=== PATIENT | female | born 1995 | race American Indian/Alaskan Native ===

== ENCOUNTER 2019-06-04 17:20 | Outpatient (CLI) | payer OTHER ==
[2019-06-04 18:51] VITALS: BP 111/65
--- NOTE | 2019-06-04 21:42 | Ultrasound Report ---
Limited OB Ultrasound BPP HISTORY: decel. TECHNIQUE: Grayscale and color Doppler imaging performed. COMPARISON: None FINDINGS: There is a single viable intrauterine gestation which is cephalic in presentation. Heart ra te is 148 bpm. JOSE CARLOS was 21 cm in this patient with reported gestational age of 34 weeks and 2 days. On BPP, the fetus received a score of 2 out of 2 for breathing movement, movement, posture/tone, and JOSE CARLOS. Total score was 8 out of 8. IMPRESSION: 1. Single viable intrauterine gestation as above. 2. Normal BPP. Signer Name: Bear Hernandez MD Signed: 06/04/2019 9:37 PM Workstation Name: [id number]
== END 2019-06-04 21:40 | disposition home or self-care (01) ==
LOC: TRG 17:20
PROVIDERS: ATTEND Obstetrics & Gynecology
DX: O47.03 False labor before 37 completed weeks of gestation, third trimester (principal); Z3A.34 34 weeks gestation of pregnancy
CPT/HCPCS: 59025; 76815; 76819

== ENCOUNTER 2019-07-06 20:48 | Emergency (ER) | payer OTHER ==
[2019-07-07] MEDS ORDERED: SODIUM CHLORIDE IRRI 500 ML 500 ML IR ONE (01:15)
[2019-07-07] MEDS ORDERED: LIDOCAINE (1%) 10 MG/1 ML VIAL 20 ML MDV ONE (01:17)
[2019-07-07] MEDS ORDERED: LIDOCAINE (1%) 10 MG/1 ML VIAL 20 ML MDV INFILTRATI ONE (01:18)
[2019-07-07] MEDS ORDERED: SODIUM CHLORIDE 0.9% IRR 500 ML BOTTLE IR ONE (01:18)
[2019-07-07] MEDS ORDERED: HYDROGEN PEROXIDE 118 ML SOLUTION ONE (02:20)
--- NOTE | 2019-07-07 02:22 | Emergency Department Report ---
HPI - General Chief Complaint: Wound/Laceration Time Seen by Provider: 07/07/19 00:42 - HPI HPI: Room 36 The patient is a 24-year-old female presenting with a chief complaint of finger laceration. The patient states approximately 3 hours ago while opening a can she accidentally cut her right index finger and right thumb. Patient denies vaginal bleeding or abdominal pain. Patient is 39 weeks Location: [See above] Duration: [See above] Quality: [See above] Severity: [See above] Timing: [See above] Context: [See above] Modifying factors: [See above] Associated signs and symptoms: [see above] ED Past Medical Hx - Past Medical History Previous Medical History?: No - Surgical History Past Surgical History?: No - Family History Family history: no significant - Social History Smoking Status: Never Smoker Substance Use Type: None - Medications Home Medications: Home Medications Medication Instructions Recorded Confirmed Last Taken Type cephALEXin [Keflex] 500 mg PO Q6HR #28 capsule 07/07/19 Unknown Rx ED Review of Systems ROS: Stated complaint: 39WKS PREG/R INDEX FINGER/THUMB LAC Other details as noted in HPI Constitutional: no symptoms reported Eyes: denies: eye pain ENT: denies: throat pain Respiratory: no symptoms reported Cardiovascular: denies: chest pain Endocrine: no symptoms reported Gastrointestinal: denies: abdominal pain Skin: other (finger laceration) Physical Exam - Physical Exam Vital Signs: Vital Signs 07/06/19 21:37 Temperature 98.9 F Pulse Rate 92 H Respiratory 18 Rate Blood Pressure 106/71 O2 Sat by Pulse 98 Oximetry Physical Exam: GENERAL: The patient is well-developed well-nourished female lying on stretcher not appearing to be in acute distress. [] HEENT: Normocephalic. Atraumatic. Extraocular motions are intact. Patient has moist mucous membranes. NECK: Supple. Trachea midline CHEST/LUNGS: There is no respiratory distress noted. HEART/CARDIOVASCULAR: Regular. There is no tachycardia. 2+ right radial pulse. Normal capillary refill right thumb and right index finger ABDOMEN: Abdomen is gravid. heart tones 138 bpm per nursing SKIN: There is an approximately 3 cm curvilinear laceration to the palmar aspect of the right index finger. There is an approximately 1.5 similar laceration to the palmar aspect of the right thumb NEURO: The patient is awake, alert, and oriented. The patient is cooperative. The patient has normal speech MUSCULOSKELETAL: The patient does not fully flex the right index finger secondary to pain. After digital block is performed patient is able to fully flex right index finger and make a fist ED Course Vital Signs 07/06/19 21:37 Temperature 98.9 F Pulse Rate 92 H Respiratory 18 Rate Blood Pressure 106/71 O2 Sat by Pulse 98 Oximetry - Laceration /Wound Repair Right Palm Finger Wound Location: upper extremity Wound Length (cm): 3 Wound's Depth, Shape: linear Wound Explored: clean Irrigated w/ Saline (ccs): 250 Betadine Prep?: Yes Anesthesia: 1% Lidocaine Volume Anesthetic (ccs): 5 Wound Repaired With: sutures Suture Size/Type: 4:0 Number of Sutures: 6 Deep Layer Suture Size/Type: 4:0, dexon (Vicryl) Number Deep Layer Sutures: 2 Sterile Dressing Applied?: Yes Right Finger Wound Location: upper extremity (right thumb) Wound Length (cm): 1 Wound's Depth, Shape: linear Wound Explored: clean Wound Repaired With: Dermabond ED Medical Decision Making - Differential Diagnosis finger laceration Critical care attestation.: If time is entered above; I have spent that time in minutes in the direct care of this critically ill patient, excluding procedure time. ED Disposition Clinical Impression: Laceration of right index finger, Laceration of right thumb Disposition: - TO HOME OR SELFCARE Is pt being admited?: No Does the pt Need Aspirin: No Condition: Stable Instructions: Finger Laceration (ED) Additional Instructions: Return to the emergency department should you develop worsening symptoms, inability to tolerate food or liquids, high fever or any other concerns Prescriptions: cephALEXin [Keflex] 500 mg PO Q6HR #28 capsule Referrals: PRIMARY CARE, [Primary Care Provider] - 3-5 Days Time of Disposition:
[2019-07-07] MEDS ORDERED: NEOMY 3.5 MG/BACIT 400 UNITS/POLY B 5000 UNITS/GM OINT PACKET TP ONE ×2 (02:29→02:49)
[2019-07-07] MEDS ORDERED: HYDROGEN PEROXIDE 118 ML SOLUTION TP ONE (02:53)
[2019-07-07 03:02] VITALS: BP 109/63
== END 2019-07-07 03:02 | disposition home or self-care (01) ==
LOC: ED 20:48
DX: O9A.213 Injury, poisoning and certain other consequences of external causes complicating pregnancy, third trimester (principal); S61.210A Laceration without foreign body of right index finger without damage to nail, initial encounter; S61.011A Laceration without foreign body of right thumb without damage to nail, initial encounter; Z79.899 Other long term (current) drug therapy; Z3A.39 39 weeks gestation of pregnancy; W26.8XXA Contact with other sharp object(s), not elsewhere classified, initial encounter; Y93.89 Activity, other specified; Y92.89 Other specified places as the place of occurrence of the external cause; Y99.8 Other external cause status
CPT/HCPCS: A6250